=== PATIENT | female | born 1955 | race African-American/Black ===

== ENCOUNTER 2024-08-20 23:33 | Emergency (ER) | payer OTHER ==
[~2024-08-20] VITALS: Ht 165.1 cm; Wt 91.0 kg
[2024-08-20 23:35] VITALS: O2SAT 98
[2024-08-21 00:39] LABS: BASOPHILS % 0.5 % (0.0-2.0); EOSINOPHILS % 0.3 % (0.0-5.0); HEMATOCRIT. 45.4 % (36.0-48.0); HEMOGLOBIN. 14.8 g/dL (12.0-16.0); LYMPHOCYTES % 14.6 % (20.0-50.0); MEAN CORPUSCULAR HEMOGLOBIN 28.6 pg (28.0-32.0); MEAN CORPUSCULAR HGB CONC 32.6 g/dL (31.0-37.0); MEAN CORPUSCULAR VOLUME 87.8 fL (81.0-99.0); MEAN PLATELET VOLUME 10.4 fl (7.4-10.4); MONOCYTES % 3.5 % (2.0-8.0); NEUTROPHILS % 81.1 % (40.0-76.0); PLATELET 187 x1000/uL (130-400); RED BLOOD CELL COUNT 5.17 mill/uL (4.2-5.4); RED CELL DISTRIBUTION WIDTH 13.6 % (11.6-14.6); WHITE BLOOD COUNT 9.2 x1000/uL (4.5-11.0)
[2024-08-21 00:48] LABS: CHLORIDE 99 mEq/L (98-107); POTASSIUM 3.4 mEq/L (3.5-5.1); SODIUM 137 mEq/L (136-145)
[2024-08-21 00:49] LABS: CALCIUM 9.7 mg/dL (8.7-10.4); CARBON DIOXIDE 31 mEq/L (21-32)
[2024-08-21 00:54] LABS: CREATININE 0.7 mg/dL (0.6-1.0); GLUCOSE 216 mg/dL (70-105); UREA NITROGEN BLOOD 11 mg/dL (9-23)
[2024-08-21 00:55] LABS: TROPONIN I HIGH SENSITIVITY 11 ng/L (3.0-34)
[2024-08-21 00:56] LABS: ALANINE AMINOTRANSFERASE 28 IU/L (10-49); ALBUMIN 4.5 g/dL (3.2-4.8); ASPARTATE AMINOTRANSFERASE 21 IU/L (<34); BILIRUBIN DIRECT 0.1 mg/dL (<=3.0)
[2024-08-21 00:57] LABS: BILIRUBIN TOTAL 0.3 mg/dL (0.1-1.0); PROTEIN TOTAL 8.2 g/dL (6.0-8.3)
[2024-08-21] MEDS: MORPHINE SULFATE 4 MG/ML INJ (FOR IV/IM USE) IV STA (01:05)
[2024-08-21] MEDS: HYDRALAZINE 20MG/ML VIAL IV ONE (01:06)
[2024-08-21] MEDS: SODIUM CHLORIDE 0.9% 1,000 ML IV ONE (01:06)
[2024-08-21] MEDS: ONDANSETRON HCL 4MG/2ML INJ IV STA (01:06)
[2024-08-21 02:04] VITALS: BP 176/89; PULSE 88; RESP 14; TEMP 36.78072; O2SAT 100
[2024-08-21] MEDS ORDERED: IOHEXOL-300 100 ML BOTTLE ONE (03:11)
[2024-08-21] MEDS ORDERED: IBUP-2028 MT (03:55)
[2024-08-21 05:07] LABS: CLARITY URINE CLEAR (CLEAR); COLOR URINE YELLOW (YELLOW); GLUCOSE URINE 1+ (NEGATIVE); KETONES URINE NEGATIVE (NEGATIVE); LEUKOCYTE ESTERASE URINE TRACE (NEGATIVE); NITRITE URINE NEGATIVE (NEGATIVE); OCCULT BLOOD URINE NEGATIVE (NEGATIVE); PH URINE 5.5 (4.5-8.0); PROTEIN URINE NEGATIVE (NEGATIVE); SPECIFIC GRAVITY URINE 1.041 (1.005-1.030); UROBILINOGEN URINE 0.2 E.U./dL (0.2-1.0)
[2024-08-21] MEDS ORDERED: CEPH500C2 MT (05:36)
[2024-08-21 07:14] LABS: RBC URINE 0-2 /hpf (0-2); WBC URINE 0-2 /hpf (0-2)
[2024-08-21 07:15] LABS: BACTERIA URINE NONE SEEN; SQUAMOUS EPITHELIAL CELL URINE FEW /lpf (RARE/1+)
== END 2024-08-21 06:19 | disposition home or self-care (01) ==
LOC: ER 23:37
DX: R10.33 Periumbilical pain (principal); I11.0 Hypertensive heart disease with heart failure; I50.9 Heart failure, unspecified; R11.2 Nausea with vomiting, unspecified
CPT/HCPCS: 99285; 74177; 96374; 96375; 71045; 96361; 80076; 80048; 81003; 83690; 85025; 85610; 84484; 36415; 93005; 74176; Q9967; J0360; J2405; J2270; J7030